=== PATIENT | female | born 1955 | race Caucasian/White ===

== ENCOUNTER → 2025-06-04 | Day surgery (SDC) | payer MEDICARE ==
[2025-06-03 11:44] LABS: BASOPHILS % 1.0 % (0.0-1.0); EOSINOPHILS % 2.5 % (0.0-6.0); LYMPHOCYTES % 37.5 % (18.0-39.1); MONOCYTES % 8.0 % (4.4-11.3); NEUTROPHILS % 50.8 % (38.7-80.0); RED CELL DISTRIBUTION WIDTH 13.7 % (11.7-14.4)
[2025-06-03 12:10] LABS: EST GLOMERULAR FILTRATION RATE 97.0 ML/MIN (>=60)
[~2025-06-04] MED LIST: ACETAMINOPHEN 1000 MG/100 ML 100 ML IV ONE; ACETAMINOPHEN 1000 MG/100 ML IV PRN; ADVAIR 250-501 EACH INH; ASPIRIN 325 MG TAB PO SCH; CALCIUM + VITA1 EACH PO; CELECOXIB 100 MG CAP PO SCH; DIPHENHYDRAMINE HCL INJ 50 MG/ML VIAL IV PRN; DOCUSATE SODIUM 100 MG CAP PO PRN; FAMOTIDINE 20 MG/2 ML VIAL IV ONE; FENTANYL CITRATE/PF 100MCG/2 ML INJ ONE; HYDROCODONE/APAP 5MG-325MG TAB PO PRN; HYDROCODONE/APAP 7.5MG-325MG 1 EA TAB PO PRN; LIDOCAINE HCL 2% LOCAL INJ 5 ML SDV VIAL INJ ONE; METOCLOPRAMIDE HCL 10 MG/2ML VIAL ONE; MIDAZOLAM HCL 2 MG/2 ML VIAL ONE; OMEPRAZOLE40 MG PO; ONDANSETRON HCL INJ 2MG/ML 2ML 2 MG/ML VIAL IV PRN; ONDANSETRON HCL INJ 2MG/ML 2ML 2 MG/ML VIAL ONE; PROPOFOL IV EMULSION 10 MG/ML 20 ML VIAL ONE; ROPIVACAINE/EPI/CLONIDINE/KET 50 ML SYRINGE INJ ONE; SEMAGLUTID0.5 MG/0.1 SQ; SEVOFLURANE INHAL SOLN 250 ML PEN BTL ONE; SODIUM CHLORIDE 0.9% 1000ML 1,000 ML IV SCH; VALSARTAN-HCTZ1 EAC2 PO; VENTOLIN HFA18 GM INH
[2025-06-04] MEDS: DEXAMETHASONE SOD PHOS 10 MG/1 ML VIAL ONE (07:23)
[2025-06-04] MEDS: CELECOXIB 200 MG CAP ONE (07:23)
[2025-06-04] MEDS: GABAPENTIN 300 MG CAP ONE (07:23)
[2025-06-04] MEDS: LACTATED RINGER'S 1,000 ML ONE (07:24)
[2025-06-04] MEDS: CEFAZOLIN SODIUM 2 GM ONE (07:25)
[2025-06-04 10:03] VITALS: TEMP 97
[2025-06-04] MEDS: FENTANYL CITRATE/PF 100MCG/2 ML INJ ONE (10:52)
[2025-06-04 11:35] VITALS: BP 117/76; PULSE 91; RESP 18; O2SAT 97
== END | disposition home health service (06) ==
LOC: OR 06:21
PROVIDERS: ATTEND Specialist
DX: M17.12 Unilateral primary osteoarthritis, left knee (principal); J45.909 Unspecified asthma, uncomplicated; I10 Essential (primary) hypertension; K21.9 Gastro-esophageal reflux disease without esophagitis; Z01.812 Encounter for preprocedural laboratory examination; Z01.818 Encounter for other preprocedural examination; Z71.3 Dietary counseling and surveillance; Z79.51 Long term (current) use of inhaled steroids; Z79.85 Long-term (current) use of injectable non-insulin antidiabetic drugs; Z79.899 Other long term (current) drug therapy
CPT/HCPCS: 27447; 36415; 71046; 73560; 80048; 85025; 86850; 86900; 97116; 97161; C1713 ×2; C1776 ×4; J0131; J1100; J1308; J2003; J2250; J2405; J2704; J2765; J3010; J7121